=== PATIENT | male | born 1975 | race Caucasian/White ===

== ENCOUNTER 2024-01-06 06:11 | Day surgery (SDC) | payer BC, OTHER ==
[2023-12-31 08:22] VITALS: BMI 25.3
[2024-01-06] MEDS ORDERED: PROPOFOL 20 ML ONE (07:10)
[2024-01-06] MEDS ORDERED: MIDAZOLAM HCL 2 MG/2 ML SINGLE DOSE VIAL ONE (07:11)
[2024-01-06] MEDS ORDERED: BUPIVACAINE HCL/PF 0.25% (2.5MG/ML) 10 ML VIAL ONE (07:22)
[2024-01-06] MEDS ORDERED: GUM MASTIC/STORAX/MSAL/ALCOHOL 1 DRP DROPSBTL MC ONE (07:23)
[2024-01-06] MEDS ORDERED: oxyCODONE HCL 5 MG TABLET PO PRN (07:30)
[2024-01-06] MEDS ORDERED: ACETAMINOPHEN 325 MG TABLET (FP) PO PRN (07:30)
[2024-01-06] MEDS ORDERED: LACTATED RINGERS SOLUTION 1,000 ML IV SCH (07:30)
[2024-01-06] MEDS ORDERED: ONDANSETRON 4 MG/2 ML VIAL IVPUSH PRN (07:30)
[2024-01-06] MEDS ORDERED: ACETAMINOPHEN INJECTION 100 ML ONE (07:37)
[2024-01-06] MEDS ORDERED: ceFAZolin SODIUM 1 GM VIAL ONE ×2 (08:10)
[2024-01-06] MEDS ORDERED: KETOROLAC TROMETHAMINE 30 MG/1 ML VIAL ONE (08:10)
[2024-01-06] MEDS ORDERED: DEXAMETHASONE SOD PHOSPHATE 4 MG/1 ML VIAL ONE (08:10)
[2024-01-06] MEDS: BUPIVACAINE HCL/PF 0.25% (2.5MG/ML) 10 ML VIAL IJ ONE (08:13)
[2024-01-06] MEDS ORDERED: FENTANYL CITRATE/PF 50 MCG/ML VIAL ONE (08:42)
[2024-01-06 09:23] VITALS: RESP 16
[2024-01-06 09:35] VITALS: PULSE 56; TEMP 97.5
[2024-01-06] MEDS ORDERED: oxyCODONE HCL 5 MG TABLET ONE (09:49)
[2024-01-06] MEDS: oxyCODONE HCL 5 MG TABLET PO PRN (09:52)
[2024-01-06 10:34] VITALS: BP 124/76
== END 2024-01-06 10:25 | disposition home or self-care (01) ==
LOC: FASU 06:11
PROVIDERS: ATTEND Orthopaedic Surgery Sports Medicine
PROC: 0SBD4ZZ Excision of Left Knee Joint, Percutaneous Endoscopic Approach (ICD-10-PCS; principal; 2024-01-06 08:14)
DX: S83.242A Other tear of medial meniscus, current injury, left knee, initial encounter (principal); X58.XXXA Exposure to other specified factors, initial encounter; Y92.9 Unspecified place or not applicable; Y93.9 Activity, unspecified
CPT/HCPCS: 94760; J0131